=== PATIENT | male | born 1990 | race Hispanic/Latino ===

== ENCOUNTER 2016-06-10 22:39 | Emergency (ER) | payer OTHER ==
[~2016-06-10] VITALS: Ht 154.9 cm; Wt 80.1 kg
[2016-06-10 23:29] LABS: BASOPHILS % (AUTO) 1 % (0-2); EOSINOPHILS # (AUTO) 0.3 10^3uL; EOSINOPHILS % (AUTO) 2 % (0-4); LYMPHOCYTES # (AUTO) 1.8 X10^3; MEAN CORPUSCULAR HEMOGLOBIN 27.7 PG (26.0-34.0); MEAN CORPUSCULAR HGB CONC 34.6 g/dL (31.0-37.0); MEAN CORPUSCULAR VOLUME 80 FL (80-100); MEAN PLATELET VOLUME 10.5 FL (6.0-9.5); MONOCYTES # (AUTO) 0.8 X10^3; MONOCYTES % (AUTO) 7 % (3-11); NEUTROPHILS # (AUTO) 8.1 X10^3; NEUTROPHILS % (AUTO) 73 % (51-67); PLATELET COUNT 269 10^3uL (150-450); WHITE BLOOD COUNT 11.01 10^3uL (4.0-11.0)
[2016-06-10 23:38] LABS: ALBUMIN 4.7 g/dL (3.4-5.0); ALKALINE PHOSPHATASE 100 U/L (38-126); ANION GAP 16.8 MEQ/L (3-15); BUN/CREATININE RATIO 16 (10-20); CALCULATED IONIZED CALCIUM 4.1 mg/dL (3.8-4.6)
[2016-06-11 01:19] LABS: AMPHETAMINE SCREEN, URINE Negative (Negative); CANNABINOID SCREEN, URINE Negative (Negative); METHAMPHETAMINE SCREEN URINE S NEGATIVE (NEGATIVE); OPIATE SCREEN URINE Negative (Negative); PROPOXYPHENE STAT NEGATIVE (NEGATIVE)
--- NOTE | 2016-06-11 02:39 | NUR ---
SCREENING COMPLETE AT THIS TIME. PLAN IS FOR PATIENT TO BE TRANSFERRED TO [facility]
--- NOTE | 2016-06-11 03:52 | NUR ---
RECEIVED CALL BACK FROM KYLE BURNHAMER. HE HAS SPOKEN WITH [facility] AND GIVEN THEM HIS SCREENING. THEY ARE TO CALL ER WITH AN ACCEPTANCE DECISION.
--- NOTE | 2016-06-11 04:40 | NUR ---
RECEIVED ACCEPTANCE FROM [facility]. DOC TO DOC REPORT FINISHED AT THIS TIME.
--- NOTE | 2016-06-11 04:50 | NUR ---
THIS RN SPOKE WITH [facility], ACCEPTED TRANSFER, HOWEVER UNKNOWN ETA. [facility] DEPART[facility] STATED THEY WOULD TAKE PATIENT TO [facility], [facility]ATHER THAN WAITING ON SECURE TRANSPORT.
[2016-06-11 05:16] VITALS: BP 147/90
== END 2016-06-11 05:06 ==
LOC: ED 22:42
DX: F20.9 Schizophrenia, unspecified (principal); Z91.128 Patient's intentional underdosing of medication regimen for other reason
CPT/HCPCS: 36415; 80053; 80307; 80320; 80329; 85025; 99283; 99284